=== PATIENT | female | born 1985 | race Caucasian/White ===

== ENCOUNTER 2017-07-13 13:06 | Outpatient (CLI) | payer OTHER ==
[2017-07-13 15:04] VITALS: BP 117/64; PULSE 78; RESP 16; TEMP 97.9
--- NOTE | 2017-07-15 19:05 | P.MSEPDOC ---
Presenting Problems - Arrival Data Date of Arrival on Unit: 07/13/17 Time of Arrival on Unit: 13:00 Mode of Transport: Ambulatory - Complaint OB-Reason for Admission/Chief Complaint: Visual Disturbances, Other Comment: dizzy at work. eyes blacked out for 30-60 sec. scared Medical History - Information : 4 Para: 3 Term: 3 : 0 Abortions: Spontaneous or Elective: 0 Number of Living Children: 3 - Gestational Age Gestational Age by JONATHAN (wks/days): 31 Weeks and 6 Days Review of Systems - Review of Systems Constitutional: No problems Breast: No problems ENT: No problems Cardiovascular: No problems Respiratory: No problems Gastrointestinal: No problems Genitourinary: No problems Musculoskeletal: No problems Neurological: No problems Skin: No problems Vital Signs - Temperature Temperature: 97.9 F Temperature Source: Tympanic - Pulse Right Radial Pulse Rate: 78 Pulse Assessment Method: Automatic Cuff - Respirations Respiratory Rate: 16 Oxygen Delivery Method: Room Air - Blood Pressure Right Arm Blood Pressure: 117/64 Blood Pressure Mean: 81 Blood Pressure Source: Automatic Cuff Medical Screen Scoring (Pre) - Cervical Exam Dilation: Exam Deferred - Uterine Contractions Frequency: N/A - Maternal Vital Signs Maternal Temperature: N/A Signs of Preeclampsia: N/A Maternal Respirations: N/A - Pain Assessment Pain Intensity: 0 - Maternal Trauma Maternal Trauma: N/A - Assessment Baseline FHR: 130 Heart Rate - NICHD Category: Category I (Normal) = 0 NST: Reactive Position: N/A Station: N/A - Total Score Total Score (Pre): 0 - Level of Risk Level of Risk: Low (0-5) Physician Notification (Pre) - Physician Notified Physician Notified Date: 07/13/17 Physician Notified Time: 14:00 Physician/Practitioner Notifed:: quan Spoke With: quan New Order Received: Yes (discharge home to see dr thrasher or come back if conserns) Disposition - Disposition OB Disposition: Discharge to home, Written follow up instructions reviewed Discharge Date: 07/13/17 Discharge Time: 14:19 I agree with the RN Medical Screening Exam: Yes Risk & Benefit of care provided described in d/c instruction: Yes Diagnosis: DIZZINESS AND GIDDINESS
== END 2017-07-13 14:19 | disposition home or self-care (01) ==
LOC: FBPOP 13:06
PROVIDERS: ATTEND Obstetrics & Gynecology
DX: O26.893 Other specified pregnancy related conditions, third trimester (principal); R42 Dizziness and giddiness; Z3A.31 31 weeks gestation of pregnancy
CPT/HCPCS: 59025; G0463; 99213

== ENCOUNTER 2017-09-02 06:04 | Inpatient (IN) | payer OTHER ==
[2017-09-02] MEDS ORDERED: OXYTOCIN 20 UNITS/1000 ML NS 1,000 ML IV SCH ×2 (06:11→13:14)
[2017-09-02] MEDS ORDERED: CARBOPROST TROMETHAMINE 250 MCG/ML 1 ML AMP IM PRN (06:11)
[2017-09-02] MEDS ORDERED: OXYTOCIN 10 UNIT/ML 1 ML VIAL IM PRN (06:11)
[2017-09-02] MEDS ORDERED: LIDOCAINE 1% (PF) 10 MG/ML (30 ML SDV) SQ PRN (06:11)
[2017-09-02] MEDS ORDERED: TERBUTALINE 1 MG/ML VIAL SQ PRN (06:11)
[2017-09-02] MEDS ORDERED: METHYLERGONOVINE 0.2 MG/ML 1 ML AMP IM PRN (06:11)
[2017-09-02] MEDS: LACTATED RINGERS 1,000 ML IV SCH ×3 (06:20→10:28)
--- NOTE | 2017-09-02 06:34 | P.HPOB ---
History of Present Illness H&P Date: 09/02/17 Chief Complaint: Patient is requesting induction of labor. This patient is a pleasant 32-year-old 4 para 3 female estimated date of confinement 09/08/2017 estimated gestational age 39-0/7 weeks who presents to labor and delivery for requested induction of labor. Patient's care has been complicated by an ultrasound at 19 weeks which showed cord plexus cyst, dilated renal pelves, and questionable dilated cerebral ventricle. Patient was referred to maternal- medicine which showed only choroid plexus cyst and mild renal pelvis dilation. Patient's quad screen was negative and she declined amniocentesis. Recommendations were for growth ultrasounds and nonstress tests. Patient's had adequate growth and normal nonstress testing. Review of Systems Gastrointestinal: Reports heartburn Genitourinary: Reports Menstruation: Reports amenorrhea Past Medical History Past Medical History: No Reported History History of Any Multi-Drug Resistant Organisms: None Reported Additional Past Surgical History / Comment(s): Oral surgery. Past Anesthesia/Blood Transfusion Reactions: No Reported Reaction Past Psychological History: Anxiety Smoking Status: Never smoker Past Alcohol Use History: None Reported Past Drug Use History: None Reported Medications and Allergies Home Medications Medication Instructions Recorded Confirmed Type Pnv,Calcium 72/Iron/Folic Acid 1 tab PO DAILY 07/13/17 09/02/17 History [ Plus Tablet] Allergies Allergy/AdvReac Type Severity Reaction Status Date / Time cefaclor [From Ceclor] AdvReac Unknown Verified 09/02/17 06:10 Childhood Exam - Vital Signs Vital signs: Intake and Output 09/01/17 09/01/17 09/02/17 14:59 22:59 06:59 Other: Weight 71.668 kg - OBG Physical Exam Abdomen: bowel sounds normal, no diffuse tenderness, no bruit present, no guarding noted, no hepatomegaly, no splenomegaly, no mass Vulva: both: normal Vagina: normal moisture, no discharge Cervix: Cervix is 2 cm dilated thick and -2 station. Uterus: enlarged (Fundal height is 39 cm) Results blood work shows she is A positive, rubella immune, RPR nonreactive, hepatitis B negative, HIV nonreactive, Glucola was normal, quad screen was negative, ultrasounds as above. Most recent ultrasound done approximately 7 days ago shows estimated weight is 7 lbs. 14 oz. Group B strep was negative. Assessment and Plan Assessment: This is a pleasant 32-year-old 4 para 3 female 39 weeks gestation who presents for requested induction of labor. Patient has known mild bilateral renal pelves dilation. Plan is induction of labor and anticipate vaginal delivery. 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 (1) Third trimester Current Visit: Yes Status: Acute Code(s): Z34.93 - ENCNTR FOR SUPRVSN OF NORMAL PREG, UNSP, THIRD TRIMESTER SNOMED Code(s): 05887558 (2) Elective induction of labor planned Current Visit: Yes Status: Acute Code(s): XBG8295 - SNOMED Code(s): 857808861 (3) Dilation of renal pelvis of fetus Current Visit: Yes Status: Acute Code(s): [id number] - SNOMED Code(s): 946285374
[2017-09-02 06:56] LABS: Basophils # (A) 0.1 k/uL (0-0.2); Basophils % (A) 0 %; Eosinophils # (A) 0.1 k/uL (0-0.7); Eosinophils % (A) 1 %; HGB 12.2 gm/dL (11.4-16.0); Lymphocytes # (A) 2.1 k/uL (1.0-4.8); Lymphocytes % (A) 18 %; MCH 29.3 pg (25.0-35.0); MCHC 32.2 g/dL (31.0-37.0); Mean Platelet Volume 9.3; Monocytes # (A) 0.5 k/uL (0-1.0); Monocytes % (A) 4 %; Neutrophils # (A) 8.7 k/uL (1.3-7.7); Neutrophils % (A) 75 %; Platelet Count 159 k/uL (150-450); RBC 4.17 m/uL (3.80-5.40); RDW 13.6 % (11.5-15.5); WBC 11.6 k/uL (3.8-10.6)
[2017-09-02 07:46] VITALS: BMI 26.2
[2017-09-02] MEDS ORDERED: SODIUM CHLORIDE 0.9% 100 ML BAG ONE (09:33)
[2017-09-02] MEDS ORDERED: fentaNYL (PF) 50 MCG/ML 5 ML AMP ONE (09:33)
[2017-09-02] MEDS ORDERED: BUPIVACAINE (PF) 0.25% 30 ML VIAL ONE (09:33)
[2017-09-02] MEDS ORDERED: BUPIVACAINE (PF) 0.5% 12.5 ML, fentaNYL (PF) 200 MCG in SODIUM CHLORIDE 0.9% 83.5 ML EPIDURAL ONE (09:58)
[2017-09-02] MEDS ORDERED: WITCH HAZEL 1 EACH MED..PAD TOPICAL PRN (13:14)
[2017-09-02] MEDS ORDERED: LANOLIN CREAM 5 GM TUBE TOPICAL PRN (13:14)
[2017-09-02] MEDS ORDERED: BENZOCAINE/MENTHOL SPRAY 1 GM/SPRAY AEROSOL TOPICAL PRN (13:14)
[2017-09-02] MEDS ORDERED: BISACODYL 10 MG SUPP RECTAL PRN (13:14)
[2017-09-02] MEDS ORDERED: diphenhydrAMINE 50 MG/ML 1 ML VIAL IVP PRN (13:14)
[2017-09-02] MEDS ORDERED: ACETAMINOPHEN TAB 325 MG TAB PO PRN (13:14)
[2017-09-02] MEDS ORDERED: SIMETHICONE 80 MG CHEWABLE PO PRN (13:14)
[2017-09-02] MEDS ORDERED: HYDROCORTISONE 2.5% RECTAL CREAM 30 GM TUBE RECTAL PRN (13:14)
[2017-09-02] MEDS ORDERED: diphenhydrAMINE 25 MG CAP PO PRN (13:14)
[2017-09-02] MEDS ORDERED: ZOLPIDEM 5 MG TAB PO PRN (13:14)
[2017-09-02] MEDS: SENNOSIDES-DOCUSATE SODIUM 1 EACH TAB PO SCH ×2 (13:20→22:12)
[2017-09-02] MEDS: IBUPROFEN 600 MG TAB PO PRN ×2 (13:26→21:12)
--- NOTE | 2017-09-02 17:19 | P.PROBDLV ---
Vaginal Delivery Note - . Vaginal Delivery Note: Normal vaginal delivery viable male infant Apgars 9 and 10 delivery time is 1302 hrs. Please see dictated H&P for intimate details of this patient's admission. Brief summary this is a pleasant 32-year-old 4 para 3 female 39 and one sevenths weeks gestation who is admitted to labor and delivery for requested induction of labor. On admission patient is 2 cm dilated has artificial rupture membranes for clear fluid. Labor is induced with Pitocin per protocol. Patient's labor progresses and she does get an epidural for pain control. Patient does quickly gets to complete. This time the epidural is showed off due to lack of maternal effort. Patient then has the urge to push and pushed the head to the perineum. Posterior perineum is then supported we have controlled delivery of 's head over the intact perineum. Mouth and nares are bulb suctioned and there is no evidence of a nuchal cord. With gentle downward traction we then have deliver the anterior and posterior shoulder and rest this 's body. This is a vigorous viable male infant Apgars are 9 and 10 delivery time is 1302 hrs. After delivery of the the infant is late on the mother's abdomen. Of note she does have H do not in the umbilical cord. Umbilical cord after is done pulse 80 is doubly clamped cut. The placenta is spontaneously delivered intact. Inspection of the perineum shows a superficial posterior laceration does not require repair. Estimated blood loss is 100 mL. There are no complications. and mother are stable delivery room.
[2017-09-02 22:11] VITALS: RESP 16
--- NOTE | 2017-09-03 05:51 | P.PNOBGVD ---
Subjective - Subjective Patient reports: Reports appetite normal, Reports voiding normally, Reports pain well controlled, Reports ambulating normally : doing well Objective - Latest Vital Signs Latest vital signs: Vital Signs Temp Pulse Resp BP Pulse Ox 09/02/17 23:56 98.2 F 72 16 112/65 09/02/17 23:54 72 16 09/02/17 20:00 98.0 F 74 16 111/68 09/02/17 15:10 98.0 F 96 18 114/67 09/02/17 14:40 98.0 F 100 18 114/64 09/02/17 14:10 98.7 F 96 18 116/63 09/02/17 13:55 91 125/72 09/02/17 13:40 98.7 F 109 H 18 130/72 09/02/17 13:25 98.5 F 102 H 18 119/68 09/02/17 13:10 98.6 F 111 H 18 121/71 09/02/17 06:10 97.2 F L 86 16 95/62 100 Intake and Output 09/02/17 09/02/17 09/03/17 14:59 22:59 06:59 Intake Total 20.1 Balance 20.1 Intake: Intake, IV Titration 20.1 Amount Oxytocin 20 Units/1000 ml 20.1 Ns 1,000 ml @ 1 MILLIUNIT/MIN 3 mls/hr IV .Q24H SHIRLEY Rx#:[id number] Other: # Voids 1 1 - Exam Lungs: bilateral: normal Chest: Normal S1, Normal S2 Extremities: Present: normal Abdomen: Present: normal appearance, soft Uterus: Present: normal, firm - Labs Labs: Abnormal Lab Results - Last 24 Hours (Table) 09/02/17 Range/Units 06:15 WBC 11.6 H (3.8-10.6) k/uL Neutrophils # 8.7 H (1.3-7.7) k/uL Assessment and Plan Assessment: day #1. Patient is resting without complaints wishes to go home. Vital signs are stable she's afebrile. Uterus is firm nontender she's having normal lochia. My impression is a normal course. Plan is to continue routine care discharge home later today. (1) Third trimester Current Visit: Yes Status: Acute Code(s): Z34.93 - ENCNTR FOR SUPRVSN OF NORMAL PREG, UNSP, THIRD TRIMESTER SNOMED Code(s): 11939434 (2) Elective induction of labor planned Current Visit: Yes Status: Acute Code(s): [id number] - SNOMED Code(s): 508202486 (3) Dilation of renal pelvis of fetus Current Visit: Yes Status: Acute Code(s): [id number] - SNOMED Code(s): 337339044
--- NOTE | 2017-09-03 05:55 | P.DS ---
Providers Date of admission: 09/02/17 06:04 Expected date of discharge: 09/03/17 Attending physician: Fidel Ott Primary care physician: Loli Tran - Discharge Diagnosis(es) (1) Third trimester Current Visit: Yes Status: Acute (2) Elective induction of labor planned Current Visit: Yes Status: Acute (3) Dilation of renal pelvis of fetus Current Visit: Yes Status: Acute Hospital Course: Please see dictated H&P for intimate details of this patient's admission. Brief summary this is a pleasant 32-year-old 4 para 3 female 39 and one sevenths weeks gestation admitted to labor and delivery for requested induction of labor. Patient is admitted has uncomplicated induction of labor goes on to have a vaginal delivery viable male . Please see dictated delivery note. day 1 patient's felt to be stable for discharge home follow up with me in 6 weeks. Procedures: Induction of labor and normal vaginal delivery Patient Condition at Discharge: Good Plan - Discharge Summary New Discharge Prescriptions: New Ibuprofen [Motrin] 600 mg PO Q6HR PRN #40 tab PRN Reason: Mild Pain Or Fever >= 100.5 No Action Pnv,Calcium 72/Iron/Folic Acid [ Plus Tablet] 1 tab PO DAILY Discharge Medication List Pnv,Calcium 72/Iron/Folic Acid [ Plus Tablet] 1 tab PO DAILY 07/13/17 [ History] Ibuprofen [Motrin] 600 mg PO Q6HR PRN #40 tab 09/03/17 [Rx] Follow up Appointment(s)/Referral(s): Fidel Ott MD [STAFF PHYSICIAN] - 10/14/17 9:15 am Patient Instructions/Handouts: Vaginal Delivery (DC) Activity/Diet/Wound Care/Special Instructions: No intercourse or anything per vagina for 6 weeks. Please call if any fever, chills, excessive vaginal bleeding, and/or abdominal pain. Discharge Disposition: HOME SELF-CARE
[2017-09-03 07:59] VITALS: BP 97/53; PULSE 64; TEMP 99.1
[2017-09-03] MEDS: SENNOSIDES-DOCUSATE SODIUM 1 EACH TAB PO SCH (08:03)
[2017-09-03] MEDS: IBUPROFEN 600 MG TAB PO PRN (08:03)
== END 2017-09-03 13:55 | disposition home or self-care (01) | DRG 775 ==
LOC: 4FBP 06:04
PROVIDERS: ADMIT Obstetrics & Gynecology; ATTEND Obstetrics & Gynecology
PROC: 10E0XZZ Delivery of Products of Conception, External Approach (ICD-10-PCS; principal; 2017-09-02)
PROC: 3E0R3NZ Introduction of Analgesics, Hypnotics, Sedatives into Spinal Canal, Percutaneous Approach (ICD-10-PCS; principal; 2017-09-02)
PROC: 10907ZC Drainage of Amniotic Fluid, Therapeutic from Products of Conception, Via Natural or Artificial Opening (ICD-10-PCS; principal; 2017-09-02)
PROC: 00HU33Z Insertion of Infusion Device into Spinal Canal, Percutaneous Approach (ICD-10-PCS; principal; 2017-09-02)
PROC: 3E033VJ Introduction of Other Hormone into Peripheral Vein, Percutaneous Approach (ICD-10-PCS; principal; 2017-09-02)
DX: O35.8XX0 Maternal care for other (suspected) fetal abnormality and damage, not applicable or unspecified (principal); Z37.0 Single live birth; Z3A.39 39 weeks gestation of pregnancy
CPT/HCPCS: 85025; 88307